=== PATIENT | female | born 2000 | race Two or more races ===

== ENCOUNTER 2018-07-10 08:09 | Observation (INO) | payer MEDICAID ==
[~2018-07-10] VITALS: Ht 160 cm; Wt 77.1 kg
[2018-07-24] MEDS ORDERED: PREN1TAB78 MT (19:27)
[2018-07-24] MEDS ORDERED: ACETAMINOPHEN 500MG TABLET PO NR (20:00)
[2018-07-24 20:34] LABS: CLARITY URINE CLEAR (CLEAR); COLOR URINE YELLOW (YELLOW); KETONES URINE 1+ (NEGATIVE); LEUKOCYTE ESTERASE URINE NEGATIVE (NEGATIVE); NITRITE URINE NEGATIVE (NEGATIVE); OCCULT BLOOD URINE 1+ (NEGATIVE); PROTEIN URINE NEGATIVE (NEGATIVE); SPECIFIC GRAVITY URINE 1.012 (1.005-1.030); UROBILINOGEN URINE 0.2 E.U./dL (0.2-1.0)
== END 2018-07-24 21:30 | disposition home or self-care (01) ==
LOC: L&D 08:09 → UNDOADMOB 08:09 → 8 EST LDRP 07-24 18:35
PROVIDERS: ADMIT Specialist; ATTEND Specialist
DX: O62.9 Abnormality of forces of labor, unspecified (principal); O48.0 Post-term pregnancy; Z3A.40 40 weeks gestation of pregnancy
CPT/HCPCS: 81003; 99281; G0378